=== PATIENT | male | born 1960 | race Caucasian/White ===

== ENCOUNTER 2019-03-01 17:53 | Emergency (ER) | payer BC ==
[2019-03-01] MEDS ORDERED: diphenhydrAMINE 50 MG/ML 1 ML VIAL IVP STA (18:46)
[2019-03-01] MEDS ORDERED: KETOROLAC 30 MG/ML 1 ML VIAL IVP STA (18:46)
[2019-03-01] MEDS ORDERED: SODIUM CHLORIDE 0.9% 1,000 ML IV STA (18:46)
[2019-03-01] MEDS ORDERED: METOCLOPRAMIDE 5 MG/ML 2 ML VIAL IVP STA (18:46)
--- NOTE | 2019-03-01 18:59 | ED ---
General Adult HPI - General Chief complaint: Headache Stated complaint: Headache-Ca Pt Time Seen by Provider: 03/01/19 18:33 Source: patient, RN notes reviewed, old records reviewed Mode of arrival: ambulatory Limitations: no limitations - History of Present Illness Initial comments: 58-year-old male patient sent to ED with chief complaint of occipital lobe headache that has lasted approximately 24 hours. Patient reports that as a pounding pressure type headache. Patient reports that he has a progressive onset. Denies thunderclap. Denies a loss of consciousness. Patient presents in mild waxing and waning blurred vision. Patient does have a past history significant for pancreatic cancer for which he had his initial chemotherapy treatment approximately 48 hours ago. Denies any other complaints at this time. Systemic: Pt denies fatigue, fever/chills, rash. Pt denies weakness, night sweats, weight loss. Neuro: Pt denies syncope or pre-syncope. HEENT: Pt denies ocular discharge or irritation, otalgia, rhinorrhea, pharyngitis or notable lymphadenopathy. Cardiopulmonary: Pt denies chest pain, SOB, heart palpitations, dyspnea on exertion. Abdominal/GI: Pt denies abdominal pain, n/v/d. : Pt denies dysuria, burning w/ urination, frequency/urgency. Denies new onset urinary or bowel incontinence. MSK: Pt denies myalgia, loss of strength or function in extremities. Neuro: Pt denies new onset weakness, paresthesias. - Related Data Home Medications Medication Instructions Recorded Confirmed Aspirin 325 mg PO DAILY 02/27/19 02/27/19 Insulin Glargine,Hum.rec.anlog 50 unit SQ -BRKFST 02/27/19 02/27/19 [Lorrie Welch U-100] Insulin Regular, Human [NovoLIN R] 25 unit SQ TID 02/27/19 02/27/19 Lisinopril 40 mg PO DAILY 02/27/19 02/27/19 [place]-3 Fatty Acids/Fish Oil [Fish 1 each PO DAILY 02/27/19 02/27/19 Oil 1,000 mg Softgel] Omeprazole 20 mg PO DAILY 02/27/19 02/27/19 amLODIPine [Norvasc] 5 mg PO DAILY 02/27/19 02/27/19 metFORMIN HCL ER [Glucophage Xr] 500 mg PO BID 02/27/19 02/27/19 Allergies Allergy/AdvReac Type Severity Reaction Status Date / Time No Known Allergies Allergy Verified 03/01/19 18:16 Review of Systems ROS Statement: Those systems with pertinent positive or pertinent negative responses have been documented in the HPI. ROS Other: All systems not noted in ROS Statement are negative. Past Medical History Past Medical History: Cancer, Diabetes Mellitus, GERD/Reflux, Hyperlipidemia, Hypertension Additional Past Medical History / Comment(s): PANCREATIC CANCER History of Any Multi-Drug Resistant Organisms: None Reported Past Surgical History: Cholecystectomy Additional Past Surgical History / Comment(s): Parotid Gland Tumor removal - 1985 Past Psychological History: No Psychological Hx Reported Smoking Status: Current every day smoker Past Alcohol Use History: None Reported Past Drug Use History: None Reported General Exam - General Exam Comments Initial Comments: Constitutional: NAD, AOX3, Pt has pleasant affect. HEENT: NC/AT, trachea midline, neck supple, no lymphadenopathy. Posterior pharynx non erythematous, without exudates. External ears appear normal, without discharge. Mucous membranes moist. Eyes PERRLA, EOM intact. There is no scleral icterus. No pallor noted. Cardiopulmonary: RRR, no murmurs, rubs or gallops, no JVD noted. Lungs CTAB in anterior and posterior rosen. No peripheral edema. Abdominal exam: Abdomen soft and non-distended. Abdomen non-tender to palpation in all 4 quadrants. Bowel sounds active in LLQ. No hepatosplenomegaly. No ecchymosis Neuro: CN II-XII intact. No nuchal rigidity. No raccon eyes, no vigil sign, no hemotympanum. No cervical spinal tenderness. NIH 0. MSK: No posterior calf tenderness bilaterally, homans sign negative bilaterally. Posterior tibialis and radial pulse +2 bilaterally. Sensation intact in upper and lower extremities. Full active ROM in upper and lower extremities, 5/5 stregnth. Limitations: no limitations Course Vital Signs 03/01/19 18:14 Temperature 97.8 F Pulse Rate 100 Respiratory 16 Rate Blood Pressure 115/64 O2 Sat by Pulse 99 Oximetry Medical Decision Making - Medical Decision Making 58-year-old male patient presents ED chief complaint of headache. Discussed signs stable, afebrile. Physical exam didn't display acute pathology. Neurologic exam within normal limits, NIH 0. Patient was recommended CAT scan of brain, however patient declines request empiric treatment. Neurologic exam within normal limits prior to discharge. Discussed with patient and that intracranial pathology not ruled out, they are in understanding. Pt headache resolved with pharmacologic intervention, will be discharged and follow up with primary care provider and oncologist. We'll try to get condition worsens. Case discussed with Dr. Anna. Disposition Clinical Impression: Headache Disposition: HOME SELF-CARE Condition: Stable Instructions (If sedation given, give patient instructions): Acute Headache (ED) Additional Instructions: Patient to adhere to previously discussed treatment plan and will take medication(s) as directed. Patient to follow up with PCP in 1-2 days. Patient to return to ED if symptoms do not improve. Follow-up with primary care provider and oncologist tomorrow. Return to ER if condition worsens. Is patient prescribed a controlled substance at d/c from ED?: No Referrals: Daniel Voss MD [Primary Care Provider] - 1-2 days
[2019-03-01] MEDS ORDERED: MORPHINE SULFATE 4 MG/ML SYRINGE IV STA (19:02)
[2019-03-01 21:04] VITALS: BP 127/60; PULSE 92; RESP 18; TEMP 98
== END 2019-03-01 21:03 | disposition home or self-care (01) ==
LOC: EC 17:53
DX: R51 Headache (principal); F17.200 Nicotine dependence, unspecified, uncomplicated; E11.9 Type 2 diabetes mellitus without complications; I10 Essential (primary) hypertension; K21.9 Gastro-esophageal reflux disease without esophagitis; E78.5 Hyperlipidemia, unspecified; Z79.82 Long term (current) use of aspirin; Z79.4 Long term (current) use of insulin; Z79.899 Other long term (current) drug therapy; Z85.07 Personal history of malignant neoplasm of pancreas; Z98.890 Other specified postprocedural states; Z90.49 Acquired absence of other specified parts of digestive tract; Z92.21 Personal history of antineoplastic chemotherapy; Z53.20 Procedure and treatment not carried out because of patient's decision for unspecified reasons
CPT/HCPCS: 99284; 96374; 96375 ×2; J2270; J1200; J2765

== ENCOUNTER → 2019-03-14 | Outpatient (CLI) | payer BC ==
[2019-03-14 13:45] LABS: African American GFR (CKD) >90 (>60 ml/min/1.73 sqM); Blood Urea Nitrogen 15 mg/dL (9-20)
--- NOTE | 2019-03-14 14:17 | CT ---
EXAMINATION TYPE: CT brain wo/w con DATE OF EXAM: 03/14/2019 COMPARISON: None. HISTORY: Headache dizziness post chemo treatment CT DLP: 1751.2 mGycm Automated exposure control for dose reduction was used. CONTRAST: CT scan of the head is performed without and with IV Contrast, patient injected with 100 mL of Isovue 300. FINDINGS: Noncontrast images show no acute intracranial hemorrhage or midline shift. Ventricles and sulci are m ildly prominent. Davila-white matter differentiation is fairly well preserved. Postcontrast images show no suspicious enhancing intraparenchymal masses. Postcontrast coronal and sagittal reconstructed carl ges not sent to PACS at time of dictation making evaluation slightly suboptimal. The globes are intac t and the visualized sinuses are clear. No suspicious fluid signal bilateral mastoid air cells. IMPRESSION: No acute intracranial hemorrhage or midline shift. No suspicious enhancing masses.
== END | disposition home or self-care (01) ==
LOC: RADCTMAIN 13:08
PROVIDERS: ATTEND Internal Medicine Hematology & Oncology
DX: C25.0 Malignant neoplasm of head of pancreas (principal); R51 Headache
CPT/HCPCS: 82565; 84520; 70470; 36415; Q9967

== ENCOUNTER → 2019-12-26 | Outpatient (CLI) | payer BC ==
--- NOTE | 2019-12-26 12:15 | XR ---
EXAMINATION TYPE: XR lumbar spine 2 or 3V DATE OF EXAM: 12/26/2019 CLINICAL HISTORY: Back pain and lower extremity pain TECHNIQUE: Frontal and lateral images of the lumbar spine are obtained. COMPARISON: None FINDINGS: There are 5 lumbar type vertebral bodies identified. The lumbar spine shows satisfactory vertebral body heights. Small anterior osteophytes are seen. Facet arthropathy is seen from L3 throug h S1. Intervertebral disc space narrowing at L4-L5 and L5-S1. Very minimal retrolisthesis of L4 on L5 . The overlying soft tissue appears unremarkable. Cholecystectomy clips are noted. IMPRESSION: No acute fracture in the lumbar spine. Minimal retrolisthesis of L5 on S1, likely a dege nerative basis. Overall mild to moderate degenerative disc disease of the lower lumbar spine.
--- NOTE | 2019-12-26 12:17 | XR ---
EXAMINATION TYPE: XR sacrum coccyx DATE OF EXAM: 12/26/2019 CLINICAL HISTORY: Back pain and lower extremity pain TECHNIQUE: 3 views of the sacrum and coccyx were obtained COMPARISON: None. FINDINGS: There is no acute fracture/dislocation evident in the sacrum. The hip and sacroiliac join ts appear aligned without sacroiliac joint space widening. Mild sclerosis is seen of the cephalad por tion of the left sacroiliac joint. The overlying soft tissue appears unremarkable. IMPRESSION: There is no acute fracture or dislocation in the pelvis. Mild arthropathy of the cranial aspect of the left sacroiliac joint.
--- NOTE | 2019-12-26 12:24 | XR ---
EXAMINATION TYPE: XR thoracic spine complete DATE OF EXAM: 12/26/2019 CLINICAL HISTORY: Back and lower extremity pain TECHNIQUE: Frontal, lateral, and swimmer's view of thoracic spine are obtained. COMPARISON: None. FINDINGS: The lower thoracic vertebral levels maintain normal vertebral body heights. Mid thoracic ve rtebral body levels are difficult to accurately measure and difficult to exclude mild compression def ormity. Bridging anterior aspirates are seen of the midthoracic spine. No gross malalignment. Porti ons of the right-sided Mediport are seen. IMPRESSION: Vertebral body heights of the midthoracic spine are difficult to accurately measure given slight obliquity on imaging. If there is concern for compression deformity repeat x-ray or MRI of th e thoracic spine would be recommended. Moderate degenerative disc disease of the midthoracic spine is also seen.
== END | disposition home or self-care (01) ==
LOC: RADXRMAIN 11:24
PROVIDERS: ATTEND Internal Medicine Hematology & Oncology
DX: M43.17 Spondylolisthesis, lumbosacral region (principal); M51.36 Other intervertebral disc degeneration, lumbar region; M51.34 Other intervertebral disc degeneration, thoracic region; M12.852 Other specific arthropathies, not elsewhere classified, left hip; C25.0 Malignant neoplasm of head of pancreas; E11.9 Type 2 diabetes mellitus without complications
CPT/HCPCS: 72072; 72100; 72220